=== PATIENT | female | born 1995 | race Caucasian/White ===

== ENCOUNTER 2020-09-30 15:08 | Outpatient (CLI) | payer BC ==
[2020-10-01 01:52] LABS: SARS-CoV-2 PCR by NAA Not Detected (NotDetected)
== END 2020-09-30 15:09 | disposition home or self-care (01) ==
LOC: CSHLAB 15:08
PROVIDERS: ATTEND Surgery
DX: Z20.822 Contact with and (suspected) exposure to COVID-19 (principal); K21.9 Gastro-esophageal reflux disease without esophagitis
CPT/HCPCS: 87635; U0003; U0005

== ENCOUNTER 2020-10-05 05:45 | Day surgery (SDC) | payer BC ==
[2020-10-04 11:56] VITALS: BMI 52.7
[2020-10-05] MEDS ORDERED: Lidocaine 1% MPF 2 ML VIAL ONE (06:38)
[2020-10-05] MEDS ORDERED: Lidocaine 1% PF 5 ML VIAL ONE (07:32)
[2020-10-05] MEDS ORDERED: Fentanyl 100 MCG/2 ML VIAL ONE (07:32)
[2020-10-05] MEDS ORDERED: Midazolam HCl 2 mg/2 ml Vial ONE (07:32)
[2020-10-05] MEDS ORDERED: PROPOFOL 20 ML ONE (07:32)
== END 2020-10-05 08:46 | disposition home or self-care (01) ==
LOC: CSHSDC 05:45
PROVIDERS: ATTEND Surgery
DX: K29.30 Chronic superficial gastritis without bleeding (principal); K21.9 Gastro-esophageal reflux disease without esophagitis; E66.01 Morbid (severe) obesity due to excess calories
CPT/HCPCS: 88305; J2250; J2704; J3010

== ENCOUNTER 2022-03-21 21:19 | Emergency (ER) | payer BC ==
[2022-03-21] MEDS ORDERED: Ketorolac Tromethamine 30 MG/ML VIAL ONE (22:09)
[2022-03-21] MEDS ORDERED: Ondansetron PF 4 MG/2 ML Vial ONE (22:09)
[2022-03-21 22:11] LABS: ALT (SGPT) 7 U/L (8-55); AST (SGOT) 12 U/L (5-34); Albumin 4.4 g/dL (3.5-5.0); Alkaline Phosphatase 103 U/L (40-110); Anion Gap 14 mmol/L (10-20); BUN (Urea Nitrogen) 12 mg/dL (7.0-18.7); Bilirubin, Total 0.8 mg/dL (0.2-1.2); Calc. Creatinine Clearance 0 mL/min (70-130); Calcium 9.3 mg/dL (7.8-10.44); Carbon Dioxide 23 mmol/L (22-29); Chloride 103 mmol/L (98-107); Estimated GFR 123; Globulin 2.8 g/dL (2.4-3.5); Glucose 112 mg/dL (70-105); Potassium 3.8 mmol/L (3.5-5.1); Protein, Total 7.2 g/dL (6.0-8.3); Sodium 136 mmol/L (136-145)
[2022-03-21 22:19] LABS: #Eosinphils 0.1 10x3/uL (0.0-0.5); #Monocytes 0.9 10x3/uL (0.0-1.1); #Neutrophils 9.8 10x3/uL (1.5-8.4); %Basophils 0.3 % (0.0-2.0); %Eosinophils 0.7 % (0.0-6.0); %Lymphocytes 5.9 % (18.0-47.0); %Monocytes 7.5 % (0.0-10.0); %Neutrophils 85.3 % (40.0-75.0); Hemoglobin 14.4 g/dL (12.0-15.5); Mean Corpuscular Hemoglobin 28.2 pg (27.0-33.0); Mean Corpuscular Volume 82.8 fl (81.6-98.3); Mean Platelet Volume 10.6 fl (7.4-10.4); Platelet Count 268 10x3/uL (150-450); RBC Distribution Width 11.7 % (11.5-14.5); Red Blood Cell (RBC) Count 5.11 10x6/uL (3.90-5.03); White Blood Cell (WBC) Count 11.6 10x3/uL (3.5-10.5)
[2022-03-21 22:39] LABS: BHCG - Serum Negative (NEGATIVE); Pregs Control Background? CLEAR/WHITE (CLR/WHITE); Pregs Control Bar Appear? YES (CONTROL BAR)
== END 2022-03-21 23:46 | disposition home or self-care (01) ==
LOC: CSHERS 21:19
DX: R55 Syncope and collapse (principal); R19.7 Diarrhea, unspecified
CPT/HCPCS: 70450; 80053; 84703; 85025; 93005; 96361; 96374; 96375; J1885; J2405